=== PATIENT | male | born 1990 | race Hispanic/Latino ===

== ENCOUNTER 2022-06-08 12:45 | Emergency (ER) | payer OTHER ==
[~2022-06-08] VITALS: Ht 175.3 cm; Wt 80.7 kg
[2022-06-08] MEDS ORDERED: KETOROLAC TROMETHAMINE 30 MG/ML VIAL IV STA (13:27)
[2022-06-08] MEDS ORDERED: KETOROLAC TROMETHAMINE 30 MG/ML VIAL ONE (14:08)
== END 2022-06-08 14:56 | disposition home or self-care (01) ==
LOC: FSED 12:59
DX: R09.1 Pleurisy (principal)
CPT/HCPCS: 71046; 80053; 82553; 84484; 85025; 93005; 99283; J1885